=== PATIENT | female | born 1975 | race Caucasian/White ===

== ENCOUNTER 2017-02-26 09:04 | Emergency (ER) | payer SELFPAY ==
[~2017-02-26] VITALS: Ht 147.3 cm; Wt 100.0 kg
[2017-02-26] MEDS ORDERED: TRAMADOL 50MG TABLET PO ONE (12:00)
[2017-02-26 12:10] VITALS: BP 160/100
== END 2017-02-26 12:27 | disposition home or self-care (01) ==
LOC: ER 09:05
DX: T17.228A Food in pharynx causing other injury, initial encounter (principal); X58.XXXA Exposure to other specified factors, initial encounter; Y93.89 Activity, other specified; Y92.89 Other specified places as the place of occurrence of the external cause; Y99.8 Other external cause status
CPT/HCPCS: 70360; 81025; 99284